=== PATIENT | female | born 1935 | race Caucasian/White ===

== ENCOUNTER 2022-02-03 16:00 | Inpatient (IN) | payer MEDICARE ==
[2022-02-04 00:14] LABS: Basophils # (Auto) 0.1 K/mm3 (0.0-0.1); Basophils % (Auto) 0.9 % (0.0-1.8); Eosinophils # (Auto) 0.1 K/mm3 (0.0-0.4); Eosinophils % (Auto) 1.3 % (0.0-4.3); Hematocrit 34.9 % (30.3-42.9); Hemoglobin 11.7 gm/dl (10.1-14.3); Lymphocytes # (Auto) 1.7 K/mm3 (1.2-5.4); Lymphocytes % (Auto) 27.9 % (13.4-35.0); Mean Corpuscular HGB Conc 33 % (30-34); Mean Corpuscular Volume 86 fl (79-97); Monocytes # (Auto) 0.5 K/mm3 (0.0-0.8); Monocytes % (Auto) 7.3 % (0.0-7.3); Platelet Count 213 K/mm3 (140-440); Red Blood Count 4.05 M/mm3 (3.65-5.03); Red Cell Distribution Width 13.5 % (13.2-15.2)
[2022-02-04 00:57] LABS: Hepatitis B Surface Antigen Non-Reactive (Negative); Hepatitis C Virus Antibody Non-Reactive (NonReactive)
[2022-02-04 01:48] LABS: Albumin 3.9 g/dL (3.9-5); Calcium 9.2 mg/dL (8.4-10.2); Chol/HDL Ratio 3.23 %
[2022-02-04] MEDS ORDERED: MELATONIN 1 MG PO PRN (11:09)
[2022-02-04] MEDS ORDERED: NON-FORMULARY EACH (Acetaminophen [Tylenol] 325 MG Capsule) PO PRN (11:09)
--- NOTE | 2022-02-04 11:09 | History and Physical Report ---
GP History & Physical - History of Present Illness Date of admission: 02/03/22 Date of Examination: 02/04/22 Reason for Admission: Danger to self, Failure of Outpatient Treatment, Severe anxiety/depression History of Present Illness: The patient was seen today. She is confused. She has poor insight and unable to give a lot of history. She thinks she's in [place], [place]. She doesn't know why she was admitted into the hospital. She says she lives with her granddaughter. The patient could not tell me what medications she takes. She denies hallucinations. When asking about self harm or wanting to hurt anyone, the patient says "I'm a good Catholic woman. Felix is holding me up." PAST PSYCHIATRIC HISTORY: PAST MEDICAL HISTORY: None reported or document Family Psychiatric History: None reported or documented SOCIAL HISTORY REVIEW OF SYSTEMS MENTAL STATUS EXAMINATION Diagnoses: Delusional Disorder Treatment Plan: Patient admitted for inpatient psychiatric evaluation, medication adjustment and close monitoring The patient's behavior, mood, sleep and appetite will be closely monitored. Patient enrolled in individual and group therapeutic sessions and encouraged to attend. Patient provided with a safe and structured environment. Patient's physical health needs will be addressed by the Hospitalist. Hospitalist Consulted Labs including CBC, CMP, Lipid profile and Hemoglobin A1C levels ordered for baseline reference Social Assessment will be completed and the Floor Cashier will work with patient and family to ensure a suitable and safe disposition Medication adjustment will be made as clinically indicated Restarted home meds Usual Wellness Mosque/Preservation: - Start Trazodone 50 mg po QHS & 50 mg po QHS PRN between 10 PM & 2 AM for insomnia - Start Melatonin 5 mg po QHS to promote circadian rhythm The patient agreed on the treatment plan, understood the risk, benefit, alternative treatment, potential consequence of no treatment, and gave informed consent. Estimated days: 7 Legal Status: Voluntary Reaction to Hospitalization: Accepting Medications and Allergies Allergies Allergy/AdvReac Type Severity Reaction Status Date / Time Penicillins Allergy Hives Verified 02/03/22 20:43 codeine AdvReac Vomiting Verified 02/03/22 20:44 Home Medications Medication Instructions Recorded Confirmed Last Taken Type Acetaminophen [Tylenol] 650 mg PO Q6HR PRN 02/03/22 02/03/22 Unknown History Ascorbic Acid [Vitamin C with Jaky 1,000 mg PO DAILY 02/03/22 02/03/22 Unknown History Hips] Aspirin EC [Halfprin EC] 81 mg PO QDAY 02/03/22 02/03/22 Unknown History Cholecalciferol Vit D3 [Vitamin D3 1,000 unit PO QDAY 02/03/22 02/03/22 Unknown History 1,000 UNIT TAB] Ezetimibe [Zetia] 10 mg PO HS 02/03/22 02/03/22 Unknown History Levothyroxine [Synthroid] 112 mcg PO QAM 02/03/22 02/03/22 Unknown History Loratadine [Allergy Relief] 10 mg PO DAILY 02/03/22 02/03/22 Unknown History Melatonin [Melatonin 1MG TAB] 1.5 mg PO HS PRN 02/03/22 02/03/22 Unknown History Metoprolol [Lopressor] 25 mg PO BID 02/03/22 02/03/22 Unknown History Multivit-Min/Iron Fum/Folic AC 1 each PO DAILY 02/03/22 02/03/22 Unknown History [Multivitamin-Minerals Tablet] [place]-3 Fatty Acids/Fish Oil [Fish 1 each PO DAILY 02/03/22 02/03/22 Unknown History Oil] QUEtiapine [SEROquel] 50 mg PO HS 02/03/22 02/03/22 Unknown History Venlafaxine HCl [Effexor Xr] 75 mg PO DAILY 02/03/22 02/03/22 Unknown History cefUROXime [Ceftin] 250 mg PO Q12H 02/03/22 02/03/22 02/03/22 10:00 History hydroCHLOROthiazide 12.5 mg PO DAILY 02/03/22 02/03/22 Unknown History [Hydrochlorothiazide] Results - Results Labs/Vitals: Laboratory Last Values WBC 6.2 K/mm3 (4.5-11.0) 02/03/22 23:13 RBC 4.05 M/mm3 (3.65-5.03) 02/03/22 23:13 Hgb 11.7 gm/dl (10.1-14.3) 02/03/22 23:13 Hct 34.9 % (30.3-42.9) 02/03/22 23:13 MCV 86 fl (79-97) 02/03/22 23:13 MCH 29 pg (28-32) 02/03/22 23:13 MCHC 33 % (30-34) 02/03/22 23:13 RDW 13.5 % (13.2-15.2) 02/03/22 23:13 Plt Count 213 K/mm3 (140-440) 02/03/22 23:13 Lymph % (Auto) 27.9 % (13.4-35.0) 02/03/22 23:13 [place] % (Auto) 7.3 % (0.0-7.3) 02/03/22 23:13 Eos % (Auto) 1.3 % (0.0-4.3) 02/03/22 23:13 Baso % (Auto) 0.9 % (0.0-1.8) 02/03/22 23:13 Lymph # (Auto) 1.7 K/mm3 (1.2-5.4) 02/03/22 23:13 [place] # (Auto) 0.5 K/mm3 (0.0-0.8) 02/03/22 23:13 Eos # (Auto) 0.1 K/mm3 (0.0-0.4) 02/03/22 23:13 Baso # (Auto) 0.1 K/mm3 (0.0-0.1) 02/03/22 23:13 Seg Neutrophils % 62.6 % (40.0-70.0) 02/03/22 23:13 Seg Neutrophils # 3.9 K/mm3 (1.8-7.7) 02/03/22 23:13 Sodium 133 mmol/L (137-145) L 02/03/22 23:13 Potassium 4.2 mmol/L (3.6-5.0) 02/03/22 23:13 Chloride 93.4 mmol/L (98-107) L 02/03/22 23:13 Carbon Dioxide 27 mmol/L (22-30) 02/03/22 23:13 Anion Gap 17 mmol/L 02/03/22 23:13 BUN 20 mg/dL (7-17) H 02/03/22 23:13 Creatinine 1.0 mg/dL (0.6-1.2) 02/03/22 23:13 Estimated GFR 52 ml/min 02/03/22 23:13 BUN/Creatinine Ratio 20 % 02/03/22 23:13 Glucose 106 mg/dL (65-100) H 02/03/22 23:13 Hemoglobin A1c 5.6 % (4-6) 02/03/22 23:13 Calcium 9.2 mg/dL (8.4-10.2) 02/03/22 23:13 Total Bilirubin 0.30 mg/dL (0.1-1.2) 02/03/22 23:13 AST 20 units/L (5-40) 02/03/22 23:13 ALT 14 units/L (7-56) 02/03/22 23:13 Alkaline Phosphatase 58 units/L (35-129) 02/03/22 23:13 Total Protein 5.9 g/dL (6.3-8.2) L 02/03/22 23:13 Albumin 3.9 g/dL (3.9-5) 02/03/22 23:13 Albumin/Globulin Ratio 2.0 % 02/03/22 23:13 Triglycerides 82 mg/dL (2-149) 02/03/22 23:13 Cholesterol 152 mg/dL (50-199) 02/03/22 23:13 LDL Cholesterol Direct 88 mg/dL (50-130) 02/03/22 23:13 HDL Cholesterol 47 mg/dL (40-59) 02/03/22 23:13 Cholesterol/HDL Ratio 3.23 % 02/03/22 23:13 TSH 0.755 mlU/mL (0.270-4.200) 02/03/22 23:13 Hepatitis A IgM Ab Non-reactive (NonReactive) 02/03/22 23:13 Hep Bs Antigen Non-reactive (Negative) 02/03/22 23:13 Hep B Core IgM Ab Non-reactive (NonReactive) 02/03/22 23:13 Hepatitis C Antibody Non-reactive (NonReactive) 02/03/22 23:13 Last Vital Signs Temp 98.2 F 02/03/22 20:57 Pulse 77 02/03/22 20:57 Resp 18 02/03/22 20:57 BP 162/69 02/03/22 20:57 Pulse Ox 96 02/03/22 20:57 Physical Examination - Constitutional Vitals: Vital Signs Temp Pulse Resp BP Pulse Ox 98.2 F 77 18 162/69 96 02/03/22 20:57 02/03/22 20:57 02/03/22 20:57 02/03/22 20:57 02/03/22 20:57 Temperature -Last 24 Hours Temperature 98.2 F Mental Status Exam - Vital signs Last Vital Signs Temp 98.2 F 02/03/22 20:57 Pulse 77 02/03/22 20:57 Resp 18 02/03/22 20:57 BP 162/69 02/03/22 20:57 Pulse Ox 96 02/03/22 20:57 Physician Certification - Certification Statement Physician Certification Statement: This is an acknowledgement statement that RENE PEREZ is a 87 year old F who requires inpatient psychiatric admission for treatment which could reasonably be expected to improve the patient's condition for Estimated period of time patient will need to remain in the hospital: [ ] Plan for post-hospital care: [ ]
[2022-02-04] MEDS ORDERED: NON-FORMULARY EACH (Loratadine [Allergy Relief] 10 MG Tablet) PO SCH (11:15)
[2022-02-04] MEDS ORDERED: IRON FUM PO SCH (11:15)
[2022-02-04] MEDS ORDERED: [UNRECOGNIZED DRUG - OTHER] PO SCH (11:15)
[2022-02-04] MEDS ORDERED: NON-FORMULARY EACH (Hydrochlorothiazide [Hydrochlorothiazide] 12.5 MG Tablet) PO SCH (11:15)
[2022-02-04] MEDS ORDERED: MULTIVIT MIN PO SCH (11:15)
[2022-02-04] MEDS ORDERED: ASCORBIC ACID 1000 MG PO SCH (11:15)
[2022-02-04] MEDS ORDERED: ACETAMINOPHEN 325 MG TAB PO PRN (11:50)
[2022-02-04] MEDS ORDERED: MELATONIN 5 MG TAB PO PRN (11:54)
[2022-02-04] MEDS: OMEGA-3 FATTY ACIDS/FISH OIL 1 GRAM CAP PO SCH (13:33)
[2022-02-04] MEDS: ASPIRIN EC 81 MG TAB PO SCH (13:33)
[2022-02-04] MEDS: VENLAFAXINE XR 75 MG CAP PO SCH (13:33)
[2022-02-04] MEDS: CHOLECALCIFEROL (VIT D3) 1000 UNIT (25 mcg) TAB PO SCH (13:33)
[2022-02-04] MEDS: METOPROLOL TARTRATE 25 MG TAB PO SCH ×2 (13:41→22:07)
--- NOTE | 2022-02-04 22:02 | Consultation ---
History of Present Illness - Reason for Consult Consult date: 02/04/22 Medical management Requesting physician: LAWANDA LEONARDO - History of Present Illness 87 YO Female with Vascular Dementia with Behavioral Disturbance, Cerebral Atherosclerosis, HTN, HLD, Hypothyroidism, Seizure DO, MDD, CAT. Pt is admitted to [facility] for psychiatric stabilization. Consult placed by Dr. Leonardo for medical management. Patient seen and evaluated in the recreation room. P atient denies fever, chills, chest pain, palpitation, adductive cough, skin rash, recent contact, known exposure to COVID-19. No reported nursing events.. Patient remains at baseline level of cognition and function. Past History Past Medical History: CAD, hypertension, hyperlipidemia, hypothyroidism, stroke Past Surgical History: Other (Pacemaker placement) Social history: single. denies: smoking, alcohol abuse Family history: diabetes, hypertension Medications and Allergies Allergies Allergy/AdvReac Type Severity Reaction Status Date / Time Penicillins Allergy Hives Verified 02/03/22 20:43 codeine AdvReac Vomiting Verified 02/03/22 20:44 Home Medications Medication Instructions Recorded Confirmed Last Taken Type Acetaminophen [Tylenol] 650 mg PO Q6HR PRN 02/03/22 02/03/22 Unknown History Ascorbic Acid [Vitamin C with Jaky 1,000 mg PO DAILY 02/03/22 02/03/22 Unknown History Hips] Aspirin EC [Halfprin EC] 81 mg PO QDAY 02/03/22 02/03/22 Unknown History Cholecalciferol Vit D3 [Vitamin D3 1,000 unit PO QDAY 02/03/22 02/03/22 Unknown History 1,000 UNIT TAB] Ezetimibe [Zetia] 10 mg PO HS 02/03/22 02/03/22 Unknown History Levothyroxine [Synthroid] 112 mcg PO QAM 02/03/22 02/03/22 Unknown History Loratadine [Allergy Relief] 10 mg PO DAILY 02/03/22 02/03/22 Unknown History Melatonin [Melatonin 1MG TAB] 1.5 mg PO HS PRN 02/03/22 02/03/22 Unknown History Metoprolol [Lopressor] 25 mg PO BID 02/03/22 02/03/22 Unknown History Multivit-Min/Iron Fum/Folic AC 1 each PO DAILY 02/03/22 02/03/22 Unknown History [Multivitamin-Minerals Tablet] [place]-3 Fatty Acids/Fish Oil [Fish 1 each PO DAILY 02/03/22 02/03/22 Unknown History Oil] QUEtiapine [SEROquel] 50 mg PO HS 02/03/22 02/03/22 Unknown History Venlafaxine HCl [Effexor Xr] 75 mg PO DAILY 02/03/22 02/03/22 Unknown History cefUROXime [Ceftin] 250 mg PO Q12H 02/03/22 02/03/22 02/03/22 10:00 History hydroCHLOROthiazide 12.5 mg PO DAILY 02/03/22 02/03/22 Unknown History [Hydrochlorothiazide] Active Meds: Active Medications Acetaminophen (Acetaminophen 325 Mg Tab) 650 mg PO Q4H PRN PRN Reason: Pain, Mild (1-3) Ascorbic Acid (Ascorbic Acid 500 Mg Tab) 1,000 mg PO QDAY [facility] Aspirin (Aspirin Ec 81 Mg Tab) 81 mg PO QDAY [facility] Last Admin: 02/04/22 13:33 Dose: 81 mg Cefuroxime Axetil (Cefuroxime 250 Mg Tab) 250 mg PO Q12H [facility] Last Admin: 02/04/22 13:33 Dose: 250 mg Cetirizine HCl (Cetirizine 10 Mg Tab) 10 mg PO DAILY [facility] Cholecalciferol (Cholecalciferol (Vit D3) 1000 Unit (25 Mcg) Tab) 1,000 unit PO QDAY [facility] Last Admin: 02/04/22 13:33 Dose: 1,000 unit Ezetimibe (Ezetimibe 10 Mg Tab) 10 mg PO HS [facility] Fish Oil ([place]-3 Fatty Acids/Fish Oil 1 Gram Cap) 1,000 mg PO DAILY [facility] Last Admin: 02/04/22 13:33 Dose: 1,000 mg Hydrochlorothiazide (Hydrochlorothiazide 12.5 Mg Cap) 12.5 mg PO QDAY [facility] Levothyroxine Sodium (Levothyroxine 112 Mcg Tab) 112 mcg PO 0600 [facility] Melatonin (Melatonin 5 Mg Tab) 2.5 mg PO HS PRN PRN Reason: Sleep Metoprolol Tartrate (Metoprolol Tartrate 25 Mg Tab) 25 mg PO BID [facility] Last Admin: 02/04/22 13:41 Dose: 25 mg Multivitamins (Multivitamins ,Therapeutic Tab) 1 each PO DAILY [facility] Quetiapine Fumarate (Quetiapine 25 Mg Tab) 50 mg PO [facility] Venlafaxine HCl (Venlafaxine Xr 75 Mg Cap) 75 mg PO DAILY [facility] Last Admin: 02/04/22 13:33 Dose: 75 mg Review of Systems Constitutional: no weight loss, no weight gain, no fever, no sweats Ears, nose, mouth and throat: no ear pain, no tinnitis, no nose pain, no nasal congestion Breasts: no change in shape, no swelling Cardiovascular: no chest pain, no orthopnea, no edema Respiratory: no cough, no cough with sputum Gastrointestinal: no abdominal pain, no vomiting, no diarrhea, no constipation Genitourinary Female: no pelvic pain, no flank pain, no dysuria, no urinary frequency Rectal: no pain, no incontinence Musculoskeletal: no neck stiffness, no arm numbness/tingling Integumentary: no rash, no redness, no wounds, no jaundice Neurological: no head injury, no paralysis, no parathesias, no numbness, no tingling, no seizures Psychiatric: anxiety, depression, anxiety attacks, irritability, sadness/tearfullness Endocrine: no cold intolerance, no polyphagia, no polydipsia, no polyuria Hematologic/Lymphatic: no easy bruising Allergic/Immunologic: no urticaria, no allergic rhinitis, no wheezing Exam - Constitutional Vitals: Temp Pulse Resp BP Pulse Ox 98.6 F 80 16 158/62 97 02/04/22 21:00 02/04/22 21:00 02/04/22 21:00 02/04/22 21:00 02/04/22 21:00 General appearance: Present: no acute distress - EENT Eyes: Present: PERRL ENT: hearing intact, clear oral mucosa - Neck Neck: Present: supple, normal ROM - Respiratory Respiratory effort: normal Respiratory: bilateral: CTA - Cardiovascular Heart Sounds: Present: S1 & S2. Absent: rub, click - Extremities Extremities: pulses symmetrical, No edema Peripheral Pulses: within normal limits - Abdominal General gastrointestinal: Present: soft, non-tender, non-distended, normal bowel sounds Female genitourinary: Present: normal - Integumentary Integumentary: Present: clear, warm, dry - Musculoskeletal Musculoskeletal: gait normal, strength equal bilaterally - Psychiatric Psychiatric: agitated - Neurologic Neurologic: CNII-XII intact, moves all extremities Results - Labs CBC & Chem 7: 02/03/22 23:13 02/03/22 23:13 Labs: Abnormal lab results 02/03/22 02/04/22 Range/Units 23:13 06:40 Sodium 133 L (137-145) mmol/L Chloride 93.4 L (98-107) mmol/L BUN 20 H (7-17) mg/dL Glucose 106 H (65-100) mg/dL POC Glucose 107 H (70-105) mg/dL Total Protein 5.9 L (6.3-8.2) g/dL Assessment and Plan - Patient Problems (1) Vascular dementia with behavioral disturbance Current Visit: Yes Status: Acute Plan to address problem: Verbal prompting, verbal redirection, benzodiazepine therapy as clinically indicated. Supportive care. (2) Cerebral atherosclerosis Current Visit: Yes Status: Acute Plan to address problem: Risk factor reduction, antiplatelet therapy, supportive care. (3) Malnutrition Current Visit: Yes Status: Acute Qualifiers: Protein-calorie malnutrition severity: moderate Plan to address problem: Encourage increased protein intake, dietary supplementation. (4) Hypothyroidism Current Visit: Yes Status: Acute Plan to address problem: Continue current therapy, outpatient primary care physician follow-up. (5) Hyperlipidemia Current Visit: Yes Status: Acute Qualifiers: Hyperlipidemia type: mixed hyperlipidemia Qualified Code(s): E78.2 - Mixed hyperlipidemia Plan to address problem: Low-cholesterol diet, risk factor reduction. (6) Seizure disorder Current Visit: Yes Status: Acute Plan to address problem: Continue antiepileptic therapy as clinically indicated, supportive care, seizure precautions. (7) Major depression Current Visit: Yes Status: Acute Qualifiers: Major depression episode severity: unspecified Plan to address problem: Continue medical management, supportive care, cognitive behavioral therapy as clinically indicated. (8) Generalized anxiety disorder Current Visit: Yes Status: Acute Plan to address problem: Benzodiazepine therapy as clinically indicated. (9) Advance care planning Current Visit: Yes Status: Acute Plan to address problem: Verbal prompting, verbal redirection, benzodiazepine therapy as clinically indicated.
[2022-02-04] MEDS: QUEtiapine 25 MG TAB PO SCH (22:07)
[2022-02-04] MEDS: EZETIMIBE 10 MG TAB PO SCH (22:07)
[2022-02-05] MEDS: LEVOTHYROXINE 112 MCG TAB PO SCH (05:47)
--- NOTE | 2022-02-05 08:52 | Progress Note ---
Subjective Date of service: 02/05/22 Principal diagnosis: Delusional Disorder Subjective Comment: The patient was seen today. She says she feels better and slept good. She does state that she at times feels depressed. The patient also says her appetite is good. She denies SI/HI or hallucinations of any kind. Will start Zoloft 25mg for depression. REVIEW OF SYSTEMS MENTAL STATUS EXAMINATION Diagnoses: Delusional Disorder Treatment Plan: Patient admitted for inpatient psychiatric evaluation, medication adjustment and close monitoring The patient's behavior, mood, sleep and appetite will be closely monitored. Patient enrolled in individual and group therapeutic sessions and encouraged to attend. Patient provided with a safe and structured environment. Patient's physical health needs will be addressed by the Hospitalist. Hospitalist Consulted Labs including CBC, CMP, Lipid profile and Hemoglobin A1C levels ordered for baseline reference Social Assessment will be completed and the Manager Business will work with patient and family to ensure a suitable and safe disposition Medication adjustment will be made as clinically indicated Start Zoloft 25mg po daily Usual Wellness Spiritism/Preservation: - Start Trazodone 50 mg po QHS & 50 mg po QHS PRN between 10 PM & 2 AM for insomnia - Start Melatonin 5 mg po QHS to promote circadian rhythm The patient agreed on the treatment plan, understood the risk, benefit, alternative treatment, potential consequence of no treatment, and gave informed consent. Estimated days: 7 Medications and Allergies Allergies Allergy/AdvReac Type Severity Reaction Status Date / Time Penicillins Allergy Hives Verified 02/03/22 20:43 codeine AdvReac Vomiting Verified 02/03/22 20:44 Home Medications Medication Instructions Recorded Confirmed Last Taken Type Acetaminophen [Tylenol] 650 mg PO Q6HR PRN 02/03/22 02/03/22 Unknown History Ascorbic Acid [Vitamin C with Jaky 1,000 mg PO DAILY 02/03/22 02/03/22 Unknown History Hips] Aspirin EC [Halfprin EC] 81 mg PO QDAY 02/03/22 02/03/22 Unknown History Cholecalciferol Vit D3 [Vitamin D3 1,000 unit PO QDAY 02/03/22 02/03/22 Unknown History 1,000 UNIT TAB] Ezetimibe [Zetia] 10 mg PO HS 02/03/22 02/03/22 Unknown History Levothyroxine [Synthroid] 112 mcg PO QAM 02/03/22 02/03/22 Unknown History Loratadine [Allergy Relief] 10 mg PO DAILY 02/03/22 02/03/22 Unknown History Melatonin [Melatonin 1MG TAB] 1.5 mg PO HS PRN 02/03/22 02/03/22 Unknown History Metoprolol [Lopressor] 25 mg PO BID 02/03/22 02/03/22 Unknown History Multivit-Min/Iron Fum/Folic AC 1 each PO DAILY 02/03/22 02/03/22 Unknown History [Multivitamin-Minerals Tablet] [place]-3 Fatty Acids/Fish Oil [Fish 1 each PO DAILY 02/03/22 02/03/22 Unknown History Oil] QUEtiapine [SEROquel] 50 mg PO HS 02/03/22 02/03/22 Unknown History Venlafaxine HCl [Effexor Xr] 75 mg PO DAILY 02/03/22 02/03/22 Unknown History cefUROXime [Ceftin] 250 mg PO Q12H 02/03/22 02/03/22 02/03/22 10:00 History hydroCHLOROthiazide 12.5 mg PO DAILY 02/03/22 02/03/22 Unknown History [Hydrochlorothiazide] Active Meds: Active Medications Acetaminophen (Acetaminophen 325 Mg Tab) 650 mg PO Q4H PRN PRN Reason: Pain, Mild (1-3) Ascorbic Acid (Ascorbic Acid 500 Mg Tab) 1,000 mg PO QDAY [facility] Aspirin (Aspirin Ec 81 Mg Tab) 81 mg PO QDAY [facility] Last Admin: 02/04/22 13:33 Dose: 81 mg Cefuroxime Axetil (Cefuroxime 250 Mg Tab) 250 mg PO Q12HR [facility] Stop: 02/07/22 22:01 Cetirizine HCl (Cetirizine 10 Mg Tab) 10 mg PO DAILY [facility] Cholecalciferol (Cholecalciferol (Vit D3) 1000 Unit (25 Mcg) Tab) 1,000 unit PO QDAY [facility] Last Admin: 02/04/22 13:33 Dose: 1,000 unit Ezetimibe (Ezetimibe 10 Mg Tab) 10 mg PO HS [facility] Last Admin: 02/04/22 22:07 Dose: 10 mg Fish Oil ([place]-3 Fatty Acids/Fish Oil 1 Gram Cap) 1,000 mg PO DAILY [facility] Last Admin: 02/04/22 13:33 Dose: 1,000 mg Hydrochlorothiazide (Hydrochlorothiazide 12.5 Mg Cap) 12.5 mg PO QDAY [facility] Levothyroxine Sodium (Levothyroxine 112 Mcg Tab) 112 mcg PO 0600 [facility] Last Admin: 02/05/22 05:47 Dose: 112 mcg Melatonin (Melatonin 5 Mg Tab) 2.5 mg PO HS PRN PRN Reason: Sleep Metoprolol Tartrate (Metoprolol Tartrate 25 Mg Tab) 25 mg PO BID [facility] Last Admin: 02/04/22 22:07 Dose: 25 mg Multivitamins (Multivitamins ,Therapeutic Tab) 1 each PO DAILY [facility] Quetiapine Fumarate (Quetiapine 25 Mg Tab) 50 mg PO HS [facility] Last Admin: 02/04/22 22:07 Dose: 50 mg Venlafaxine HCl (Venlafaxine Xr 75 Mg Cap) 75 mg PO DAILY [facility] Last Admin: 02/04/22 13:33 Dose: 75 mg Results - Results Labs/Vitals: Laboratory Last Values WBC 6.2 K/mm3 (4.5-11.0) 02/03/22 23:13 RBC 4.05 M/mm3 (3.65-5.03) 02/03/22 23:13 Hgb 11.7 gm/dl (10.1-14.3) 02/03/22 23:13 Hct 34.9 % (30.3-42.9) 02/03/22 23:13 MCV 86 fl (79-97) 02/03/22 23:13 MCH 29 pg (28-32) 02/03/22 23:13 MCHC 33 % (30-34) 02/03/22 23:13 RDW 13.5 % (13.2-15.2) 02/03/22 23:13 Plt Count 213 K/mm3 (140-440) 02/03/22 23:13 Lymph % (Auto) 27.9 % (13.4-35.0) 02/03/22 23:13 [place] % (Auto) 7.3 % (0.0-7.3) 02/03/22 23:13 Eos % (Auto) 1.3 % (0.0-4.3) 02/03/22 23:13 Baso % (Auto) 0.9 % (0.0-1.8) 02/03/22 23:13 Lymph # (Auto) 1.7 K/mm3 (1.2-5.4) 02/03/22 23:13 [place] # (Auto) 0.5 K/mm3 (0.0-0.8) 02/03/22 23:13 Eos # (Auto) 0.1 K/mm3 (0.0-0.4) 02/03/22 23:13 Baso # (Auto) 0.1 K/mm3 (0.0-0.1) 02/03/22 23:13 Seg Neutrophils % 62.6 % (40.0-70.0) 02/03/22 23:13 Seg Neutrophils # 3.9 K/mm3 (1.8-7.7) 02/03/22 23:13 Sodium 133 mmol/L (137-145) L 02/03/22 23:13 Potassium 4.2 mmol/L (3.6-5.0) 02/03/22 23:13 Chloride 93.4 mmol/L (98-107) L 02/03/22 23:13 Carbon Dioxide 27 mmol/L (22-30) 02/03/22 23:13 Anion Gap 17 mmol/L 02/03/22 23:13 BUN 20 mg/dL (7-17) H 02/03/22 23:13 Creatinine 1.0 mg/dL (0.6-1.2) 02/03/22 23:13 Estimated GFR 52 ml/min 02/03/22 23:13 BUN/Creatinine Ratio 20 % 02/03/22 23:13 Glucose 106 mg/dL (65-100) H 02/03/22 23:13 POC Glucose 107 mg/dL (70-105) H 02/04/22 06:40 Hemoglobin A1c 5.6 % (4-6) 02/03/22 23:13 Calcium 9.2 mg/dL (8.4-10.2) 02/03/22 23:13 Total Bilirubin 0.30 mg/dL (0.1-1.2) 02/03/22 23:13 AST 20 units/L (5-40) 02/03/22 23:13 ALT 14 units/L (7-56) 02/03/22 23:13 Alkaline Phosphatase 58 units/L (35-129) 02/03/22 23:13 Total Protein 5.9 g/dL (6.3-8.2) L 02/03/22 23:13 Albumin 3.9 g/dL (3.9-5) 02/03/22 23:13 Albumin/Globulin Ratio 2.0 % 02/03/22 23:13 Triglycerides 82 mg/dL (2-149) 02/03/22 23:13 Cholesterol 152 mg/dL (50-199) 02/03/22 23:13 LDL Cholesterol Direct 88 mg/dL (50-130) 02/03/22 23:13 HDL Cholesterol 47 mg/dL (40-59) 02/03/22 23:13 Cholesterol/HDL Ratio 3.23 % 02/03/22 23:13 TSH 0.755 mlU/mL (0.270-4.200) 02/03/22 23:13 Hepatitis A IgM Ab Non-reactive (NonReactive) 02/03/22 23:13 Hep Bs Antigen Non-reactive (Negative) 02/03/22 23:13 Hep B Core IgM Ab Non-reactive (NonReactive) 02/03/22 23:13 Hepatitis C Antibody Non-reactive (NonReactive) 02/03/22 23:13 Last Vital Signs Temp 98.6 F 02/04/22 21:00 Pulse 80 02/04/22 22:07 Resp 16 02/04/22 21:00 BP 158/62 02/04/22 22:07 Pulse Ox 97 02/04/22 21:00
[2022-02-05] MEDS: OMEGA-3 FATTY ACIDS/FISH OIL 1 GRAM CAP PO SCH (09:10)
[2022-02-05] MEDS: CHOLECALCIFEROL (VIT D3) 1000 UNIT (25 mcg) TAB PO SCH (09:10)
[2022-02-05] MEDS: MULTIVITAMINS ,THERAPEUTIC TAB PO SCH (09:10)
[2022-02-05] MEDS: ASPIRIN EC 81 MG TAB PO SCH (09:10)
[2022-02-05] MEDS: CETIRIZINE 10 MG TAB PO SCH (09:10)
[2022-02-05] MEDS: VENLAFAXINE XR 75 MG CAP PO SCH (09:10)
[2022-02-05] MEDS: SERTRALINE 25 MG TAB PO SCH (09:10)
[2022-02-05] MEDS: ASCORBIC ACID 500 MG TAB PO SCH (09:13)
[2022-02-05] MEDS: METOPROLOL TARTRATE 25 MG TAB PO SCH ×2 (10:04→21:14)
[2022-02-05] MEDS: hydroCHLOROthiazide 12.5 MG CAP PO SCH (10:05)
[2022-02-05] MEDS: QUEtiapine 25 MG TAB PO SCH (21:14)
[2022-02-05] MEDS: EZETIMIBE 10 MG TAB PO SCH (21:15)
[2022-02-06] MEDS: LEVOTHYROXINE 112 MCG TAB PO SCH (06:30)
[2022-02-06] MEDS: VENLAFAXINE XR 75 MG CAP PO SCH (09:26)
[2022-02-06] MEDS: OMEGA-3 FATTY ACIDS/FISH OIL 1 GRAM CAP PO SCH (09:26)
[2022-02-06] MEDS: ASPIRIN EC 81 MG TAB PO SCH (09:26)
[2022-02-06] MEDS: CETIRIZINE 10 MG TAB PO SCH (09:26)
[2022-02-06] MEDS: MULTIVITAMINS ,THERAPEUTIC TAB PO SCH (09:27)
[2022-02-06] MEDS: CHOLECALCIFEROL (VIT D3) 1000 UNIT (25 mcg) TAB PO SCH (09:27)
[2022-02-06] MEDS: hydroCHLOROthiazide 12.5 MG CAP PO SCH (09:27)
[2022-02-06] MEDS: SERTRALINE 25 MG TAB PO SCH (09:27)
[2022-02-06] MEDS: ASCORBIC ACID 500 MG TAB PO SCH (09:28)
[2022-02-06] MEDS: METOPROLOL TARTRATE 25 MG TAB PO SCH ×2 (09:31→21:25)
--- NOTE | 2022-02-06 10:51 | Progress Note ---
Subjective Date of service: 02/06/22 Principal diagnosis: Delusional Disorder Subjective Comment: The patient was seen today. She says she is doing pretty good and slept well. She denies SI/HI or hallucinations of any kind. 02/05 The patient was seen today. She says she feels better and slept good. She does state that she at times feels depressed. The patient also says her appetite is good. She denies SI/HI or hallucinations of any kind. Will start Zoloft 25mg for depression. REVIEW OF SYSTEMS MENTAL STATUS EXAMINATION Diagnoses: Delusional Disorder Treatment Plan: Patient admitted for inpatient psychiatric evaluation, medication adjustment and close monitoring The patient's behavior, mood, sleep and appetite will be closely monitored. Patient enrolled in individual and group therapeutic sessions and encouraged to attend. Patient provided with a safe and structured environment. Patient's physical health needs will be addressed by the Hospitalist. Hospitalist Consulted Labs including CBC, CMP, Lipid profile and Hemoglobin A1C levels ordered for baseline reference Social Assessment will be completed and the [facility] will work with patie nt and family to ensure a suitable and safe disposition Medication adjustment will be made as clinically indicated Start Zoloft 25mg po daily yesterday No changes made today Usual Wellness Orthodox/Preservation: - Start Trazodone 50 mg po QHS & 50 mg po QHS PRN between 10 PM & 2 AM for insomnia - Start Melatonin 5 mg po QHS to promote circadian rhythm The patient agreed on the treatment plan, understood the risk, benefit, alternative treatment, potential consequence of no treatment, and gave informed consent. Estimated days: 7 Medications and Allergies Allergies Allergy/AdvReac Type Severity Reaction Status Date / Time Penicillins Allergy Hives Verified 02/03/22 20:43 codeine AdvReac Vomiting Verified 02/03/22 20:44 Home Medications Medication Instructions Recorded Confirmed Last Taken Type Acetaminophen [Tylenol] 650 mg PO Q6HR PRN 02/03/22 02/03/22 Unknown History Ascorbic Acid [Vitamin C with Jaky 1,000 mg PO DAILY 02/03/22 02/03/22 Unknown History Hips] Aspirin EC [Halfprin EC] 81 mg PO QDAY 02/03/22 02/03/22 Unknown History Cholecalciferol Vit D3 [Vitamin D3 1,000 unit PO QDAY 02/03/22 02/03/22 Unknown History 1,000 UNIT TAB] Ezetimibe [Zetia] 10 mg PO HS 02/03/22 02/03/22 Unknown History Levothyroxine [Synthroid] 112 mcg PO QAM 02/03/22 02/03/22 Unknown History Loratadine [Allergy Relief] 10 mg PO DAILY 02/03/22 02/03/22 Unknown History Melatonin [Melatonin 1MG TAB] 1.5 mg PO HS PRN 02/03/22 02/03/22 Unknown History Metoprolol [Lopressor] 25 mg PO BID 02/03/22 02/03/22 Unknown History Multivit-Min/Iron Fum/Folic AC 1 each PO DAILY 02/03/22 02/03/22 Unknown History [Multivitamin-Minerals Tablet] [place]-3 Fatty Acids/Fish Oil [Fish 1 each PO DAILY 02/03/22 02/03/22 Unknown History Oil] QUEtiapine [SEROquel] 50 mg PO HS 02/03/22 02/03/22 Unknown History Venlafaxine HCl [Effexor Xr] 75 mg PO DAILY 02/03/22 02/03/22 Unknown History cefUROXime [Ceftin] 250 mg PO Q12H 02/03/22 02/03/22 02/03/22 10:00 History hydroCHLOROthiazide 12.5 mg PO DAILY 02/03/22 02/03/22 Unknown History [Hydrochlorothiazide] Active Meds: Active Medications Acetaminophen (Acetaminophen 325 Mg Tab) 650 mg PO Q4H PRN PRN Reason: Pain, Mild (1-3) Ascorbic Acid (Ascorbic Acid 500 Mg Tab) 1,000 mg PO QDAY [facility] Last Admin: 02/06/22 09:28 Dose: 1,000 mg Aspirin (Aspirin Ec 81 Mg Tab) 81 mg PO QDAY [facility] Last Admin: 02/06/22 09:26 Dose: 81 mg Cefuroxime Axetil (Cefuroxime 250 Mg Tab) 250 mg PO Q12HR [facility] Stop: 02/07/22 22:01 Last Admin: 02/06/22 09:27 Dose: 250 mg Cetirizine HCl (Cetirizine 10 Mg Tab) 10 mg PO DAILY [facility] Last Admin: 02/06/22 09:26 Dose: 10 mg Cholecalciferol (Cholecalciferol (Vit D3) 1000 Unit (25 Mcg) Tab) 1,000 unit PO QDAY [facility] Last Admin: 02/06/22 09:27 Dose: 1,000 unit Ezetimibe (Ezetimibe 10 Mg Tab) 10 mg PO HS [facility] Last Admin: 02/05/22 21:15 Dose: 10 mg Fish Oil ([place]-3 Fatty Acids/Fish Oil 1 Gram Cap) 1,000 mg PO DAILY [facility] Last Admin: 02/06/22 09:26 Dose: 1,000 mg Hydrochlorothiazide (Hydrochlorothiazide 12.5 Mg Cap) 12.5 mg PO QDAY [facility] Last Admin: 02/06/22 09:27 Dose: 12.5 mg Levothyroxine Sodium (Levothyroxine 112 Mcg Tab) 112 mcg PO 0600 [facility] Last Admin: 02/06/22 06:30 Dose: 112 mcg Melatonin (Melatonin 5 Mg Tab) 2.5 mg PO HS PRN PRN Reason: Sleep Metoprolol Tartrate (Metoprolol Tartrate 25 Mg Tab) 25 mg PO BID [facility] Last Admin: 02/06/22 09:31 Dose: Not Given Multivitamins (Multivitamins ,Therapeutic Tab) 1 each PO DAILY [facility] Last Admin: 02/06/22 09:27 Dose: 1 each Quetiapine Fumarate (Quetiapine 25 Mg Tab) 50 mg PO HS [facility] Last Admin: 02/05/22 21:14 Dose: 50 mg Sertraline HCl (Sertraline 25 Mg Tab) 25 mg PO QDAY [facility] Last Admin: 02/06/22 09:27 Dose: 25 mg Venlafaxine HCl (Venlafaxine Xr 75 Mg Cap) 75 mg PO DAILY [facility] Last Admin: 02/06/22 09:26 Dose: 75 mg Results - Results Labs/Vitals: Laboratory Last Values WBC 6.2 K/mm3 (4.5-11.0) 02/03/22 23:13 RBC 4.05 M/mm3 (3.65-5.03) 02/03/22 23:13 Hgb 11.7 gm/dl (10.1-14.3) 02/03/22 23:13 Hct 34.9 % (30.3-42.9) 02/03/22 23:13 MCV 86 fl (79-97) 02/03/22 23:13 MCH 29 pg (28-32) 02/03/22 23:13 MCHC 33 % (30-34) 02/03/22 23:13 RDW 13.5 % (13.2-15.2) 02/03/22 23:13 Plt Count 213 K/mm3 (140-440) 02/03/22 23:13 Lymph % (Auto) 27.9 % (13.4-35.0) 02/03/22 23:13 [place] % (Auto) 7.3 % (0.0-7.3) 02/03/22 23:13 Eos % (Auto) 1.3 % (0.0-4.3) 02/03/22 23:13 Baso % (Auto) 0.9 % (0.0-1.8) 02/03/22 23:13 Lymph # (Auto) 1.7 K/mm3 (1.2-5.4) 02/03/22 23:13 [place] # (Auto) 0.5 K/mm3 (0.0-0.8) 02/03/22 23:13 Eos # (Auto) 0.1 K/mm3 (0.0-0.4) 02/03/22 23:13 Baso # (Auto) 0.1 K/mm3 (0.0-0.1) 02/03/22 23:13 Seg Neutrophils % 62.6 % (40.0-70.0) 02/03/22 23:13 Seg Neutrophils # 3.9 K/mm3 (1.8-7.7) 02/03/22 23:13 Sodium 133 mmol/L (137-145) L 02/03/22 23:13 Potassium 4.2 mmol/L (3.6-5.0) 02/03/22 23:13 Chloride 93.4 mmol/L (98-107) L 02/03/22 23:13 Carbon Dioxide 27 mmol/L (22-30) 02/03/22 23:13 Anion Gap 17 mmol/L 02/03/22 23:13 BUN 20 mg/dL (7-17) H 02/03/22 23:13 Creatinine 1.0 mg/dL (0.6-1.2) 02/03/22 23:13 Estimated GFR 52 ml/min 02/03/22 23:13 BUN/Creatinine Ratio 20 % 02/03/22 23:13 Glucose 106 mg/dL (65-100) H 02/03/22 23:13 POC Glucose 107 mg/dL (70-105) H 02/04/22 06:40 Hemoglobin A1c 5.6 % (4-6) 02/03/22 23:13 Calcium 9.2 mg/dL (8.4-10.2) 02/03/22 23:13 Total Bilirubin 0.30 mg/dL (0.1-1.2) 02/03/22 23:13 AST 20 units/L (5-40) 02/03/22 23:13 ALT 14 units/L (7-56) 02/03/22 23:13 Alkaline Phosphatase 58 units/L (35-129) 02/03/22 23:13 Total Protein 5.9 g/dL (6.3-8.2) L 02/03/22 23:13 Albumin 3.9 g/dL (3.9-5) 02/03/22 23:13 Albumin/Globulin Ratio 2.0 % 02/03/22 23:13 Triglycerides 82 mg/dL (2-149) 02/03/22 23:13 Cholesterol 152 mg/dL (50-199) 02/03/22 23:13 LDL Cholesterol Direct 88 mg/dL (50-130) 02/03/22 23:13 HDL Cholesterol 47 mg/dL (40-59) 02/03/22 23:13 Cholesterol/HDL Ratio 3.23 % 02/03/22 23:13 TSH 0.755 mlU/mL (0.270-4.200) 02/03/22 23:13 Hepatitis A IgM Ab Non-reactive (NonReactive) 02/03/22 23:13 Hep Bs Antigen Non-reactive (Negative) 02/03/22 23:13 Hep B Core IgM Ab Non-reactive (NonReactive) 02/03/22 23:13 Hepatitis C Antibody Non-reactive (NonReactive) 02/03/22 23:13 Last Vital Signs Temp 97.5 F L 02/06/22 08:23 Pulse 54 L 02/06/22 09:31 Resp 18 02/06/22 08:23 BP 139/52 02/06/22 09:31 Pulse Ox 93 02/06/22 08:23
[2022-02-06] MEDS: EZETIMIBE 10 MG TAB PO SCH (21:25)
[2022-02-06] MEDS: QUEtiapine 25 MG TAB PO SCH (21:25)
[2022-02-07] MEDS: LEVOTHYROXINE 112 MCG TAB PO SCH (05:39)
[2022-02-07] MEDS: SERTRALINE 25 MG TAB PO SCH (09:23)
[2022-02-07] MEDS: VENLAFAXINE XR 75 MG CAP PO SCH (09:23)
[2022-02-07] MEDS: CETIRIZINE 10 MG TAB PO SCH (09:23)
[2022-02-07] MEDS: ASPIRIN EC 81 MG TAB PO SCH (09:23)
[2022-02-07] MEDS: OMEGA-3 FATTY ACIDS/FISH OIL 1 GRAM CAP PO SCH (09:23)
[2022-02-07] MEDS: ASCORBIC ACID 500 MG TAB PO SCH (09:23)
[2022-02-07] MEDS: CHOLECALCIFEROL (VIT D3) 1000 UNIT (25 mcg) TAB PO SCH (09:24)
[2022-02-07] MEDS: METOPROLOL TARTRATE 25 MG TAB PO SCH ×2 (09:24→21:18)
[2022-02-07] MEDS: MULTIVITAMINS ,THERAPEUTIC TAB PO SCH (09:24)
[2022-02-07] MEDS: hydroCHLOROthiazide 12.5 MG CAP PO SCH (09:24)
--- NOTE | 2022-02-07 11:53 | Progress Note ---
Assessment and Plan - Patient Problems (1) Vascular dementia with behavioral disturbance Current Visit: Yes Status: Acute Plan to address problem: Verbal prompting, verbal redirection, benzodiazepine therapy as clinically indicated. Supportive care. (2) Cerebral atherosclerosis Current Visit: Yes Status: Acute Plan to address problem: Risk factor reduction, antiplatelet therapy, supportive care. (3) Malnutrition Current Visit: Yes Status: Acute Qualifiers: Protein-calorie malnutrition severity: moderate Plan to address problem: Encourage increased protein intake, dietary supplementation. (4) Hypothyroidism Current Visit: Yes Status: Acute Plan to address problem: Continue current therapy, outpatient primary care physician follow-up. (5) Hyperlipidemia Current Visit: Yes Status: Acute Qualifiers: Hyperlipidemia type: mixed hyperlipidemia Qualified Code(s): E78.2 - Mixed hyperlipidemia Plan to address problem: Low-cholesterol diet, risk factor reduction. (6) Seizure disorder Current Visit: Yes Status: Acute Plan to address problem: Continue antiepileptic therapy as clinically indicated, supportive care, seizure precautions. (7) Major depression Current Visit: Yes Status: Acute Qualifiers: Major depression episode severity: unspecified Plan to address problem: Continue medical management, supportive care, cognitive behavioral therapy as clinically indicated. (8) Generalized anxiety disorder Current Visit: Yes Status: Acute Plan to address problem: Benzodiazepine therapy as clinically indicated. (9) Advance care planning Current Visit: Yes Status: Acute Plan to address problem: Verbal prompting, verbal redirection, benzodiazepine therapy as clinically indicated. History Interval history: 87 YO Female with Vascular Dementia with Behavioral Disturbance, Cerebral Atherosclerosis, HTN, HLD, Hypothyroidism, Seizure DO, MDD, CAT. Pt is admitted to [facility] psych unit for psychiatric stabilization. Consult placed by Dr. Kraus for medical management. Patient seen and evaluated in the recreation room. No reported nursing events.. Patient remains at baseline level of cognition and function. Hospitalist Physical - Constitutional Vitals: Temp Pulse Resp BP Pulse Ox 98.5 F 54 L 16 122/54 89 02/07/22 09:00 02/07/22 09:24 02/07/22 09:00 02/07/22 09:24 02/07/22 09:00 General appearance: Present: no acute distress, cachectic - EENT Eyes: Present: PERRL ENT: hearing intact, hearing decreased - Neck Neck: Present: supple - Respiratory Respiratory effort: normal Respiratory: bilateral: diminished - Cardiovascular Rhythm: regular Heart Sounds: Present: S1 & S2 - Extremities Extremities: no ischemia Peripheral Pulses: within normal limits - Abdominal General gastrointestinal: soft, non-tender, non-distended - Integumentary Integumentary: Present: clear, dry - Psychiatric Psychiatric: cooperative - Neurologic Neurologic: CNII-XII intact Results - Labs CBC & Chem 7: 02/03/22 23:13 02/03/22 23:13 Labs: Laboratory Last Values WBC 6.2 K/mm3 (4.5-11.0) 02/03/22 23:13 RBC 4.05 M/mm3 (3.65-5.03) 02/03/22 23:13 Hgb 11.7 gm/dl (10.1-14.3) 02/03/22 23:13 Hct 34.9 % (30.3-42.9) 02/03/22 23:13 MCV 86 fl (79-97) 02/03/22 23:13 MCH 29 pg (28-32) 02/03/22 23:13 MCHC 33 % (30-34) 02/03/22 23:13 RDW 13.5 % (13.2-15.2) 02/03/22 23:13 Plt Count 213 K/mm3 (140-440) 02/03/22 23:13 Lymph % (Auto) 27.9 % (13.4-35.0) 02/03/22 23:13 [place] % (Auto) 7.3 % (0.0-7.3) 02/03/22 23:13 Eos % (Auto) 1.3 % (0.0-4.3) 02/03/22 23:13 Baso % (Auto) 0.9 % (0.0-1.8) 02/03/22 23:13 Lymph # (Auto) 1.7 K/mm3 (1.2-5.4) 02/03/22 23:13 [place] # (Auto) 0.5 K/mm3 (0.0-0.8) 02/03/22 23:13 Eos # (Auto) 0.1 K/mm3 (0.0-0.4) 02/03/22 23:13 Baso # (Auto) 0.1 K/mm3 (0.0-0.1) 02/03/22 23:13 Seg Neutrophils % 62.6 % (40.0-70.0) 02/03/22 23:13 Seg Neutrophils # 3.9 K/mm3 (1.8-7.7) 02/03/22 23:13 Sodium 133 mmol/L (137-145) L 02/03/22 23:13 Potassium 4.2 mmol/L (3.6-5.0) 02/03/22 23:13 Chloride 93.4 mmol/L (98-107) L 02/03/22 23:13 Carbon Dioxide 27 mmol/L (22-30) 02/03/22 23:13 Anion Gap 17 mmol/L 02/03/22 23:13 BUN 20 mg/dL (7-17) H 02/03/22 23:13 Creatinine 1.0 mg/dL (0.6-1.2) 02/03/22 23:13 Estimated GFR 52 ml/min 02/03/22 23:13 BUN/Creatinine Ratio 20 % 02/03/22 23:13 Glucose 106 mg/dL (65-100) H 02/03/22 23:13 POC Glucose 107 mg/dL (70-105) H 02/04/22 06:40 Hemoglobin A1c 5.6 % (4-6) 02/03/22 23:13 Calcium 9.2 mg/dL (8.4-10.2) 02/03/22 23:13 Total Bilirubin 0.30 mg/dL (0.1-1.2) 02/03/22 23:13 AST 20 units/L (5-40) 02/03/22 23:13 ALT 14 units/L (7-56) 02/03/22 23:13 Alkaline Phosphatase 58 units/L (35-129) 02/03/22 23:13 Total Protein 5.9 g/dL (6.3-8.2) L 02/03/22 23:13 Albumin 3.9 g/dL (3.9-5) 02/03/22 23:13 Albumin/Globulin Ratio 2.0 % 02/03/22 23:13 Triglycerides 82 mg/dL (2-149) 02/03/22 23:13 Cholesterol 152 mg/dL (50-199) 02/03/22 23:13 LDL Cholesterol Direct 88 mg/dL (50-130) 02/03/22 23:13 HDL Cholesterol 47 mg/dL (40-59) 02/03/22 23:13 Cholesterol/HDL Ratio 3.23 % 02/03/22 23:13 TSH 0.755 mlU/mL (0.270-4.200) 02/03/22 23:13 Hepatitis A IgM Ab Non-reactive (NonReactive) 02/03/22 23:13 Hep Bs Antigen Non-reactive (Negative) 02/03/22 23:13 Hep B Core IgM Ab Non-reactive (NonReactive) 02/03/22 23:13 Hepatitis C Antibody Non-reactive (NonReactive) 02/03/22 23:13 [place]/IV: Voiding Method Toilet Active Medications - Current Medications Current Medications: Generic Name Dose Route Start Last Admin Trade Name Freq PRN Reason Stop Dose Admin Acetaminophen 650 mg 02/04/22 11:50 Acetaminophen 325 Mg Tab PO Q4H PRN Pain, Mild (1-3) Ascorbic Acid 1,000 mg 02/05/22 10:00 02/07/22 09:23 Ascorbic Acid 500 Mg Tab PO 1,000 mg QDAY [facility] Administration Aspirin 81 mg 02/04/22 14:00 02/07/22 09:23 Aspirin Ec 81 Mg Tab PO 81 mg QDAY [facility] Administration Cefuroxime Axetil 250 mg 02/05/22 10:00 02/07/22 09:23 Cefuroxime 250 Mg Tab PO 02/07/22 22:01 250 mg Q12HR [facility] Administration Cetirizine HCl 10 mg 02/05/22 10:00 02/07/22 09:23 Cetirizine 10 Mg Tab PO 10 mg DAILY PAGE Administration Cholecalciferol 1,000 unit 02/04/22 14:00 02/07/22 09:24 Cholecalciferol (Vit D3) 1000 Unit (25 Mcg) Tab PO 1,000 unit QDAY [facility] Administration Ezetimibe 10 mg 02/04/22 22:00 02/06/22 21:25 Ezetimibe 10 Mg Tab PO 10 mg HS PAGE Administration Fish Oil 1,000 mg 02/04/22 14:00 02/07/22 09:23 [place]-3 Fatty Acids/Fish Oil 1 Gram Cap PO 1,000 mg DAILY PAGE Administration Hydrochlorothiazide 12.5 mg 02/05/22 10:00 02/07/22 09:24 Hydrochlorothiazide 12.5 Mg Cap PO 12.5 mg QDAY [facility] Administration Levothyroxine Sodium 112 mcg 02/05/22 06:00 02/07/22 05:39 Levothyroxine 112 Mcg Tab PO 112 mcg 0600 [facility] Administration Melatonin 2.5 mg 02/04/22 11:54 Melatonin 5 Mg Tab PO HS PRN Sleep Metoprolol Tartrate 25 mg 02/04/22 14:00 02/07/22 09:24 Metoprolol Tartrate 25 Mg Tab PO Not Given BID PAGE Multivitamins 1 each 02/05/22 10:00 02/07/22 09:24 Multivitamins ,Therapeutic Tab PO 1 each DAILY PAGE Administration Quetiapine Fumarate 50 mg 02/04/22 22:00 02/06/22 21:25 Quetiapine 25 Mg Tab PO 50 mg HS PAGE Administration Sertraline HCl 25 mg 02/05/22 10:00 02/07/22 09:23 Sertraline 25 Mg Tab PO 25 mg QDAY [facility] Administration Venlafaxine HCl 75 mg 02/04/22 14:00 02/07/22 09:23 Venlafaxine Xr 75 Mg Cap PO 75 mg DAILY [facility] Administration
--- NOTE | 2022-02-07 12:25 | Progress Note ---
Subjective Date of service: 02/07/22 Principal diagnosis: Delusional Disorder Subjective Comment: The patient was seen today. She is calm, and cooperative. She says she's doing well and slept well. She denies SI/HI or hallucinations of any kind. 02/06The patient was seen today. She says she is doing pretty good and slept well. She denies SI/HI or hallucinations of any kind. 02/05 The patient was seen today. She says she feels better and slept good. She does state that she at times feels depressed. The patient also says her appetite is good. She denies SI/HI or hallucinations of any kind. Will start Zoloft 25mg for depression. REVIEW OF SYSTEMS MENTAL STATUS EXAMINATION Diagnoses: Delusional Disorder Treatment Plan: Patient admitted for inpatient psychiatric evaluation, medication adjustment and close monitoring The patient's behavior, mood, sleep and appetite will be closely monitored. Patient enrolled in individual and group therapeutic sessions and encouraged to attend. Patient provided with a safe and structured environment. Patient's physical health needs will be addressed by the Hospitalist. Hospitalist Consulted Labs including CBC, CMP, Lipid profile and Hemoglobin A1C levels ordered for baseline reference Social Assessment will be completed and the [facility] will work with patient and family to ensure a suitable and safe disposition Medication adjustment will be made as clinically indicated No changes made today Usual Wellness Nondenominational/Preservation: - Start Trazodone 50 mg po QHS & 50 mg po QHS PRN between 10 PM & 2 AM for insomnia - Start Melatonin 5 mg po QHS to promote circadian rhythm The patient agreed on the treatment plan, understood the risk, benefit, alternative treatment, potential consequence of no treatment, and gave informed consent. Estimated days: 7 Medications and Allergies Allergies Allergy/AdvReac Type Severity Reaction Status Date / Time Penicillins Allergy Hives Verified 02/03/22 20:43 codeine AdvReac Vomiting Verified 02/03/22 20:44 Home Medications Medication Instructions Recorded Confirmed Last Taken Type Acetaminophen [Tylenol] 650 mg PO Q6HR PRN 02/03/22 02/03/22 Unknown History Ascorbic Acid [Vitamin C with Jaky 1,000 mg PO DAILY 02/03/22 02/03/22 Unknown History Hips] Aspirin EC [Halfprin EC] 81 mg PO QDAY 02/03/22 02/03/22 Unknown History Cholecalciferol Vit D3 [Vitamin D3 1,000 unit PO QDAY 02/03/22 02/03/22 Unknown History 1,000 UNIT TAB] Ezetimibe [Zetia] 10 mg PO HS 02/03/22 02/03/22 Unknown History Levothyroxine [Synthroid] 112 mcg PO QAM 02/03/22 02/03/22 Unknown History Loratadine [Allergy Relief] 10 mg PO DAILY 02/03/22 02/03/22 Unknown History Melatonin [Melatonin 1MG TAB] 1.5 mg PO HS PRN 02/03/22 02/03/22 Unknown History Metoprolol [Lopressor] 25 mg PO BID 02/03/22 02/03/22 Unknown History Multivit-Min/Iron Fum/Folic AC 1 each PO DAILY 02/03/22 02/03/22 Unknown History [Multivitamin-Minerals Tablet] [place]-3 Fatty Acids/Fish Oil [Fish 1 each PO DAILY 02/03/22 02/03/22 Unknown History Oil] QUEtiapine [SEROquel] 50 mg PO HS 02/03/22 02/03/22 Unknown History Venlafaxine HCl [Effexor Xr] 75 mg PO DAILY 02/03/22 02/03/22 Unknown History cefUROXime [Ceftin] 250 mg PO Q12H 02/03/22 02/03/22 02/03/22 10:00 History hydroCHLOROthiazide 12.5 mg PO DAILY 02/03/22 02/03/22 Unknown History [Hydrochlorothiazide] Active Meds: Active Medications Acetaminophen (Acetaminophen 325 Mg Tab) 650 mg PO Q4H PRN PRN Reason: Pain, Mild (1-3) Ascorbic Acid (Ascorbic Acid 500 Mg Tab) 1,000 mg PO QDAY [facility] Last Admin: 02/07/22 09:23 Dose: 1,000 mg Aspirin (Aspirin Ec 81 Mg Tab) 81 mg PO QDAY [facility] Last Admin: 02/07/22 09:23 Dose: 81 mg Cefuroxime Axetil (Cefuroxime 250 Mg Tab) 250 mg PO Q12HR [facility] Stop: 02/07/22 22:01 Last Admin: 02/07/22 09:23 Dose: 250 mg Cetirizine HCl (Cetirizine 10 Mg Tab) 10 mg PO DAILY [facility] Last Admin: 02/07/22 09:23 Dose: 10 mg Cholecalciferol (Cholecalciferol (Vit D3) 1000 Unit (25 Mcg) Tab) 1,000 unit PO QDAY [facility] Last Admin: 02/07/22 09:24 Dose: 1,000 unit Ezetimibe (Ezetimibe 10 Mg Tab) 10 mg PO HS [facility] Last Admin: 02/06/22 21:25 Dose: 10 mg Fish Oil ([place]-3 Fatty Acids/Fish Oil 1 Gram Cap) 1,000 mg PO DAILY [facility] Last Admin: 02/07/22 09:23 Dose: 1,000 mg Hydrochlorothiazide (Hydrochlorothiazide 12.5 Mg Cap) 12.5 mg PO QDAY [facility] Last Admin: 02/07/22 09:24 Dose: 12.5 mg Levothyroxine Sodium (Levothyroxine 112 Mcg Tab) 112 mcg PO 0600 [facility] Last Admin: 02/07/22 05:39 Dose: 112 mcg Melatonin (Melatonin 5 Mg Tab) 2.5 mg PO HS PRN PRN Reason: Sleep Metoprolol Tartrate (Metoprolol Tartrate 25 Mg Tab) 25 mg PO BID [facility] Last Admin: 02/07/22 09:24 Dose: Not Given Multivitamins (Multivitamins ,Therapeutic Tab) 1 each PO DAILY [facility] Last Admin: 02/07/22 09:24 Dose: 1 each Quetiapine Fumarate (Quetiapine 25 Mg Tab) 50 mg PO HS [facility] Last Admin: 02/06/22 21:25 Dose: 50 mg Sertraline HCl (Sertraline 25 Mg Tab) 25 mg PO QDAY [facility] Last Admin: 02/07/22 09:23 Dose: 25 mg Venlafaxine HCl (Venlafaxine Xr 75 Mg Cap) 75 mg PO DAILY [facility] Last Admin: 02/07/22 09:23 Dose: 75 mg Results - Results Labs/Vitals: Laboratory Last Values WBC 6.2 K/mm3 (4.5-11.0) 02/03/22 23:13 RBC 4.05 M/mm3 (3.65-5.03) 02/03/22 23:13 Hgb 11.7 gm/dl (10.1-14.3) 02/03/22 23:13 Hct 34.9 % (30.3-42.9) 02/03/22 23:13 MCV 86 fl (79-97) 02/03/22 23:13 MCH 29 pg (28-32) 02/03/22 23:13 MCHC 33 % (30-34) 02/03/22 23:13 RDW 13.5 % (13.2-15.2) 02/03/22 23:13 Plt Count 213 K/mm3 (140-440) 02/03/22 23:13 Lymph % (Auto) 27.9 % (13.4-35.0) 02/03/22 23:13 [place] % (Auto) 7.3 % (0.0-7.3) 02/03/22 23:13 Eos % (Auto) 1.3 % (0.0-4.3) 02/03/22 23:13 Baso % (Auto) 0.9 % (0.0-1.8) 02/03/22 23:13 Lymph # (Auto) 1.7 K/mm3 (1.2-5.4) 02/03/22 23:13 [place] # (Auto) 0.5 K/mm3 (0.0-0.8) 02/03/22 23:13 Eos # (Auto) 0.1 K/mm3 (0.0-0.4) 02/03/22 23:13 Baso # (Auto) 0.1 K/mm3 (0.0-0.1) 02/03/22 23:13 Seg Neutrophils % 62.6 % (40.0-70.0) 02/03/22 23:13 Seg Neutrophils # 3.9 K/mm3 (1.8-7.7) 02/03/22 23:13 Sodium 133 mmol/L (137-145) L 02/03/22 23:13 Potassium 4.2 mmol/L (3.6-5.0) 02/03/22 23:13 Chloride 93.4 mmol/L (98-107) L 02/03/22 23:13 Carbon Dioxide 27 mmol/L (22-30) 02/03/22 23:13 Anion Gap 17 mmol/L 02/03/22 23:13 BUN 20 mg/dL (7-17) H 02/03/22 23:13 Creatinine 1.0 mg/dL (0.6-1.2) 02/03/22 23:13 Estimated GFR 52 ml/min 02/03/22 23:13 BUN/Creatinine Ratio 20 % 02/03/22 23:13 Glucose 106 mg/dL (65-100) H 02/03/22 23:13 POC Glucose 107 mg/dL (70-105) H 02/04/22 06:40 Hemoglobin A1c 5.6 % (4-6) 02/03/22 23:13 Calcium 9.2 mg/dL (8.4-10.2) 02/03/22 23:13 Total Bilirubin 0.30 mg/dL (0.1-1.2) 02/03/22 23:13 AST 20 units/L (5-40) 02/03/22 23:13 ALT 14 units/L (7-56) 02/03/22 23:13 Alkaline Phosphatase 58 units/L (35-129) 02/03/22 23:13 Total Protein 5.9 g/dL (6.3-8.2) L 02/03/22 23:13 Albumin 3.9 g/dL (3.9-5) 02/03/22 23:13 Albumin/Globulin Ratio 2.0 % 02/03/22 23:13 Triglycerides 82 mg/dL (2-149) 02/03/22 23:13 Cholesterol 152 mg/dL (50-199) 02/03/22 23:13 LDL Cholesterol Direct 88 mg/dL (50-130) 02/03/22 23:13 HDL Cholesterol 47 mg/dL (40-59) 02/03/22 23:13 Cholesterol/HDL Ratio 3.23 % 02/03/22 23:13 TSH 0.755 mlU/mL (0.270-4.200) 02/03/22 23:13 Hepatitis A IgM Ab Non-reactive (NonReactive) 02/03/22 23:13 Hep Bs Antigen Non-reactive (Negative) 02/03/22 23:13 Hep B Core IgM Ab Non-reactive (NonReactive) 02/03/22 23:13 Hepatitis C Antibody Non-reactive (NonReactive) 02/03/22 23:13 Last Vital Signs Temp 98.5 F 02/07/22 09:00 Pulse 54 L 02/07/22 09:24 Resp 16 02/07/22 09:00 BP 122/54 02/07/22 09:24 Pulse Ox 89 02/07/22 09:00
[2022-02-07] MEDS: QUEtiapine 25 MG TAB PO SCH (21:18)
[2022-02-07] MEDS: EZETIMIBE 10 MG TAB PO SCH (21:19)
[2022-02-08] MEDS: LEVOTHYROXINE 112 MCG TAB PO SCH (07:14)
--- NOTE | 2022-02-08 09:40 | Discharge Summary ---
Providers - Providers Date of Admission: 02/03/22 22:46 Date of discharge: 02/08/22 Attending physician: LAWANDA LEONARDO MD 02/03/22 20:44 Consult to Physician [CONS] Routine Comment: Consulting Provider: VIV TY Physician Instructions: Reason For Exam: New psych admission Primary care physician: MOLDER OPERATOR Hospitalization Reason for admission: delusional Admitting Diagnosis: F22 - DELUSIONAL DISORDERS Condition: Stable Hospital course: The patient was provided inpatient psychiatric treatment with safe and supportive environment, group/individual therapy, psychiatric medication, medication adjustment, adverse effect monitor, medical evaluation, medical treatment, social service assessment, social support meeting, placement assessment and psycho-education. The patients mood, cognition, behavior, motivation, compliance to treatment and appreciation on family/social support are improved and stabilized. At the time of discharge, the patient had no suicidal ideas, no homicidal ideas, no aggressive thoughts, no endangering behavior and no debilitating adverse effects. The patient agreed on the treatment plan, understood the risk, benefit, alternative treatment, potential consequence of no treatment, and gave informed consent. 02/08 The patient was seen today. She is calm and cooperative. She is pleasant. She denies SI/HI or hallucinations of any kind. The patient is clear from psych and will be discharged today. 02/07 The patient was seen today. She is calm, and cooperative. She says she's doing well and slept well. She denies SI/HI or hallucinations of any kind. 02/06The patient was seen today. She says she is doing pretty good and slept well. She denies SI/HI or hallucinations of any kind. 02/05 The patient was seen today. She says she feels better and slept good. She does state that she at times feels depressed. The patient also says her appetite is good. She denies SI/HI or hallucinations of any kind. Will start Zoloft 25mg for depression. Disposition: HOME / SELF CARE / HOMELESS Time spent for discharge: 35 Allergies/Adverse Reactions: Allergies Penicillins Allergy (Verified 02/03/22 20:43) Hives codeine Adverse Reaction (Verified 02/03/22 20:44) Vomiting Vital Signs: Last Vital Signs Temp 98.3 F 02/07/22 20:35 Pulse 62 02/07/22 21:18 Resp 14 02/07/22 20:35 BP 147/59 02/07/22 21:18 Pulse Ox 98 02/07/22 20:35 Last Lab: Laboratory Last Values WBC 6.2 K/mm3 (4.5-11.0) 02/03/22 23:13 RBC 4.05 M/mm3 (3.65-5.03) 02/03/22 23:13 Hgb 11.7 gm/dl (10.1-14.3) 02/03/22 23:13 Hct 34.9 % (30.3-42.9) 02/03/22 23:13 MCV 86 fl (79-97) 02/03/22 23:13 MCH 29 pg (28-32) 02/03/22 23:13 MCHC 33 % (30-34) 02/03/22 23:13 RDW 13.5 % (13.2-15.2) 02/03/22 23:13 Plt Count 213 K/mm3 (140-440) 02/03/22 23:13 Lymph % (Auto) 27.9 % (13.4-35.0) 02/03/22 23:13 [place] % (Auto) 7.3 % (0.0-7.3) 02/03/22 23:13 Eos % (Auto) 1.3 % (0.0-4.3) 02/03/22 23:13 Baso % (Auto) 0.9 % (0.0-1.8) 02/03/22 23:13 Lymph # (Auto) 1.7 K/mm3 (1.2-5.4) 02/03/22 23:13 [place] # (Auto) 0.5 K/mm3 (0.0-0.8) 02/03/22 23:13 Eos # (Auto) 0.1 K/mm3 (0.0-0.4) 02/03/22 23:13 Baso # (Auto) 0.1 K/mm3 (0.0-0.1) 02/03/22 23:13 Seg Neutrophils % 62.6 % (40.0-70.0) 02/03/22 23:13 Seg Neutrophils # 3.9 K/mm3 (1.8-7.7) 02/03/22 23:13 Sodium 133 mmol/L (137-145) L 02/03/22 23:13 Potassium 4.2 mmol/L (3.6-5.0) 02/03/22 23:13 Chloride 93.4 mmol/L (98-107) L 02/03/22 23:13 Carbon Dioxide 27 mmol/L (22-30) 02/03/22 23:13 Anion Gap 17 mmol/L 02/03/22 23:13 BUN 20 mg/dL (7-17) H 02/03/22 23:13 Creatinine 1.0 mg/dL (0.6-1.2) 02/03/22 23:13 Estimated GFR 52 ml/min 02/03/22 23:13 BUN/Creatinine Ratio 20 % 02/03/22 23:13 Glucose 106 mg/dL (65-100) H 02/03/22 23:13 POC Glucose 107 mg/dL (70-105) H 02/04/22 06:40 Hemoglobin A1c 5.6 % (4-6) 02/03/22 23:13 Calcium 9.2 mg/dL (8.4-10.2) 02/03/22 23:13 Total Bilirubin 0.30 mg/dL (0.1-1.2) 02/03/22 23:13 AST 20 units/L (5-40) 02/03/22 23:13 ALT 14 units/L (7-56) 02/03/22 23:13 Alkaline Phosphatase 58 units/L (35-129) 02/03/22 23:13 Total Protein 5.9 g/dL (6.3-8.2) L 02/03/22 23:13 Albumin 3.9 g/dL (3.9-5) 02/03/22 23:13 Albumin/Globulin Ratio 2.0 % 02/03/22 23:13 Triglycerides 82 mg/dL (2-149) 02/03/22 23:13 Cholesterol 152 mg/dL (50-199) 02/03/22 23:13 LDL Cholesterol Direct 88 mg/dL (50-130) 02/03/22 23:13 HDL Cholesterol 47 mg/dL (40-59) 02/03/22 23:13 Cholesterol/HDL Ratio 3.23 % 02/03/22 23:13 TSH 0.755 mlU/mL (0.270-4.200) 02/03/22 23:13 Hepatitis A IgM Ab Non-reactive (NonReactive) 02/03/22 23:13 Hep Bs Antigen Non-reactive (Negative) 02/03/22 23:13 Hep B Core IgM Ab Non-reactive (NonReactive) 02/03/22 23:13 Hepatitis C Antibody Non-reactive (NonReactive) 02/03/22 23:13 Core Measure Documentation - Palliative Care Palliative Care/ Comfort Measures: Not Applicable - Core Measures Any of the following diagnoses?: none Exam - Constitutional Vitals: Temp Pulse Resp BP Pulse Ox 98.3 F 62 14 147/59 98 02/07/22 20:35 02/07/22 21:18 02/07/22 20:35 02/07/22 21:18 02/07/22 20:35 General appearance: Present: no acute distress - EENT Eyes: Present: PERRL, EOM intact ENT: hearing intact, clear oral mucosa - Neck Neck: Present: supple, normal ROM - Respiratory Respiratory effort: normal Plan Activity: advance as tolerated Weight Bearing Status: Weight Bear as Tolerated Care Plan Goals: Maintain good and stable mental health Plan of Treatment: The patient should be compliant with medications, not to use drugs and not to drink alcohol.The patient understands that if suicidal ideas, homicidal ideas, or any endangering thoughts/behavior arise, they should immediately seek for emergent assistance including but not limited to crisis hot line and emergency room. Follow up with outpatient Psychiatrist and PCP within 7 - 14 days of discharge. Assessment: Delusional Disorder Follow up with: PRIMARY CARE, [Primary Care Provider] - 7 Days Prescriptions: Melatonin [Melatonin 5MG TAB] 2.5 mg PO HS PRN #30 tablet PRN Reason: Sleep QUEtiapine [SEROquel] 50 mg PO HS #15 Sertraline [Zoloft] 25 mg PO QDAY #30 tablet
[2022-02-08 10:52] VITALS: BP 127/53
[2022-02-08] MEDS: ASCORBIC ACID 500 MG TAB PO SCH (10:53)
[2022-02-08] MEDS: OMEGA-3 FATTY ACIDS/FISH OIL 1 GRAM CAP PO SCH (10:53)
[2022-02-08] MEDS: CHOLECALCIFEROL (VIT D3) 1000 UNIT (25 mcg) TAB PO SCH (10:54)
[2022-02-08] MEDS: MULTIVITAMINS ,THERAPEUTIC TAB PO SCH (10:54)
[2022-02-08] MEDS: VENLAFAXINE XR 75 MG CAP PO SCH (10:54)
[2022-02-08] MEDS: ASPIRIN EC 81 MG TAB PO SCH (10:54)
[2022-02-08] MEDS: SERTRALINE 25 MG TAB PO SCH (10:54)
[2022-02-08] MEDS: CETIRIZINE 10 MG TAB PO SCH (10:54)
[2022-02-08] MEDS: hydroCHLOROthiazide 12.5 MG CAP PO SCH (10:56)
[2022-02-08] MEDS: METOPROLOL TARTRATE 25 MG TAB PO SCH (10:56)
== END 2022-02-08 11:25 | disposition home or self-care (01) | DRG 885 ==
LOC: UNDOADMIN 16:00 → 3A 16:00 → 5A 22:46
PROVIDERS: ADMIT Psychiatry & Neurology Psychiatry; ATTEND Psychiatry & Neurology Psychiatry
DX: F22 Delusional disorders (principal); F01.51 Vascular dementia, unspecified severity, with behavioral disturbance; Z68.1 Body mass index [BMI] 19.9 or less, adult; R64 Cachexia; E44.0 Moderate protein-calorie malnutrition; E78.2 Mixed hyperlipidemia; I10 Essential (primary) hypertension; E78.5 Hyperlipidemia, unspecified; G40.909 Epilepsy, unspecified, not intractable, without status epilepticus; E03.9 Hypothyroidism, unspecified; F41.1 Generalized anxiety disorder; Z88.0 Allergy status to penicillin; Z88.5 Allergy status to narcotic agent; Z88.8 Allergy status to other drugs, medicaments and biological substances; Z95.0 Presence of cardiac pacemaker; Z86.73 Personal history of transient ischemic attack (TIA), and cerebral infarction without residual deficits; Z83.3 Family history of diabetes mellitus; Z82.49 Family history of ischemic heart disease and other diseases of the circulatory system; Z79.899 Other long term (current) drug therapy
CPT/HCPCS: 36415; 80053; 80061; 80074; 82962; 83036; 84443; 85025; G0378